=== PATIENT | female | born 1980 | race Hispanic/Latino ===

== ENCOUNTER 2023-12-25 12:25 | Emergency (ER) | payer SELFPAY ==
[2023-12-25] MEDS ORDERED: Ketorolac Tromethamine 30 MG (1 mL) VIAL ONE (13:58)
== END 2023-12-25 14:21 | disposition home or self-care (01) ==
LOC: CSHERS 12:25
DX: K04.7 Periapical abscess without sinus (principal)
CPT/HCPCS: 96372; 99282; J1885